=== PATIENT | female | born 1970 | race Caucasian/White ===

== ENCOUNTER 2020-06-09 08:39 | Day surgery (SDC) | payer MEDICAID, SELFPAY ==
[~2020-06-09] VITALS: Ht 170.2 cm; Wt 78.9 kg
[2020-06-09] MEDS ORDERED: MIDAZOLAM HCL 2 MG/2 ML VIAL (VERSED) IVP PRN (15:30)
[2020-06-09] MEDS ORDERED: HYDROmorphone 1 MG INJ. 1 MG/ML AMPUL IVP PRN ×2 (15:30)
[2020-06-09] MEDS ORDERED: MEPERIDINE HCL/PF 25 MG/ML DISP.SYRIN IVP PRN (15:30)
[2020-06-09] MEDS ORDERED: LR 1,000 ML IV SCH (15:30)
[2020-06-09] MEDS ORDERED: METOCLOPRAMIDE HCL 10 MG/2 ML VIAL IVP PRN (15:30)
[2020-06-09] MEDS ORDERED: ONDANSETRON HCL 4 MG/2 ML VIAL IVP PRN (15:30)
[2020-06-09] MEDS ORDERED: ALBUTEROL SULFATE 0.083% 2.5 MG/3 ML VIAL.NEB INH PRN (16:15)
[2020-06-09 19:07] VITALS: BP_SYST 131
== END 2020-06-09 19:55 | disposition home or self-care (01) ==
LOC: SDS 08:39 → SMU 08:40 → SDS 19:55
PROVIDERS: ATTEND Otolaryngology
DX: J32.4 Chronic pansinusitis (principal); D38.5 Neoplasm of uncertain behavior of other respiratory organs; J34.2 Deviated nasal septum; E03.9 Hypothyroidism, unspecified; J30.1 Allergic rhinitis due to pollen; J45.20 Mild intermittent asthma, uncomplicated; J33.8 Other polyp of sinus; Z79.899 Other long term (current) drug therapy
CPT/HCPCS: 30140; 30520; 31255; 31256; 31298; 36415; 84703; 87070 ×2; 87075; 87426; 88304; 88305; 88311; C1726; J7613